=== PATIENT | male | born 1985 | race Caucasian/White ===

== ENCOUNTER → 2021-09-01 | Outpatient (CLI) | payer BC ==
[~2021-09-01] MED LIST: OMNICEF 300 MG300 MG PO; PERCOCET 5/325 T1 EA PO; ZITHROMAX250 MG PO; ZOFRAN ODT 4 MG4 MG GT; ZOFRAN4 MG PO
[2021-09-01 14:13] LABS: HEMOGLOBIN 15.4 gm/dl (14.0-17.5); RED BLOOD COUNT 5.24 M/UL (4.20-5.50)
[2021-09-01 14:36] LABS: BUN/CREATININE RATIO 12 (0-10)
== END ==
LOC: RAD 13:51 → LAB 13:51
PROVIDERS: Nurse Practitioner
DX: R10.84 Generalized abdominal pain (principal); R19.7 Diarrhea, unspecified; R50.9 Fever, unspecified; R14.3 Flatulence; R91.8 Other nonspecific abnormal finding of lung field
CPT/HCPCS: 36415; 74022; 80053; 83690; 85027; 85652

== ENCOUNTER 2021-09-02 13:17 | Emergency (ER) | payer BC ==
[~2021-09-02 13:17] MED LIST changes: -OMNICEF 300 MG300 MG PO; -ZITHROMAX250 MG PO; -ZOFRAN4 MG PO
[2021-09-02] MEDS ORDERED: ZITHROMAX250 MG PO (16:14)
[2021-09-02] MEDS ORDERED: ZOFRAN4 MG PO (16:14)
[2021-09-02] MEDS ORDERED: OMNICEF 300 MG300 MG PO (16:14)
== END 2021-09-02 16:18 | disposition home or self-care (01) ==
LOC: ER1 13:17
DX: J18.9 Pneumonia, unspecified organism (principal); Z20.822 Contact with and (suspected) exposure to COVID-19
CPT/HCPCS: 71045; 99283; U0002

== ENCOUNTER → 2021-09-15 | Outpatient (CLI) | payer BC ==
[~2021-09-15] MED LIST changes: +OMNICEF 300 MG300 MG PO; +ZITHROMAX250 MG PO; +ZOFRAN4 MG PO
== END ==
LOC: US 10:30 → CT 11:00
DX: R94.5 Abnormal results of liver function studies (principal); J18.9 Pneumonia, unspecified organism; R53.83 Other fatigue; E86.0 Dehydration; J84.89 Other specified interstitial pulmonary diseases; R11.2 Nausea with vomiting, unspecified; R10.84 Generalized abdominal pain; R91.8 Other nonspecific abnormal finding of lung field
CPT/HCPCS: 71260; 76705; Q9967